=== PATIENT | female | born 1985 | race Caucasian/White ===

== ENCOUNTER → 2024-03-05 14:49 | Outpatient (REF) | payer OTHER, SELFPAY | LOC: PNTC 14:49 | PROVIDERS: ATTENDING PHYSICIAN Obstetrics & Gynecology | DX: O09.529 Supervision of elderly multigravida, unspecified trimester (principal); Z34.93 Encounter for supervision of normal pregnancy, unspecified, third trimester | CPT/HCPCS: 36415; 76816; 86850; 86900; 86901; 96372; J2790 ==

== ENCOUNTER 2024-04-11 11:40 | Observation (INO) | payer OTHER, SELFPAY ==
[2024-04-11 11:56] VITALS: BP 104/48; BMI 28.3
[2024-04-11 12:52] LABS: Hematocrit 35.9 % (37.0-47.0); Hemoglobin 12.7 g/dL (12.0-16.0); Mean Corp Hgb Conc. 35.4 g/dL (33.0-37.0); Mean Corpuscular Hgb 31.9 pg (27.0-31.0); Mean Corpuscular Volume 90.2 fL (81.0-99.0); Mean Platelet Volume 8.7 fL (7.4-10.4); Platelet Count 189 10^3/uL (130-400); Red Blood Cell Count 3.98 10^6/uL (4.20-5.40); Red Cell Dist. Width 12.9 % (11.5-14.5); White Blood Cell Count 10.3 10^3/uL (4.8-10.8)
[2024-04-11 13:08] LABS: Urine Albumin Negative (Neg - Trace); Urine Bilirubin Negative (Negative); Urine Character Clear (Clear); Urine Color Straw; Urine Glucose Negative (Negative); Urine Ketone 1+ (Negative); Urine Leukocyte Trace (Negative); Urine Nitrite Negative (Negative); Urine Occult Blood Negative (Negative); Urine Urobilinogen Negative (Neg - 1+)
[2024-04-11 13:33] LABS: Urine Bacteria Few (Negative)
[2024-04-11 13:34] LABS: Urine Red Blood Cell 0-2 /HPF (0-2)
== END 2024-04-11 14:44 | disposition home or self-care (01) ==
LOC: LDRP 11:40
PROVIDERS: ADMITTING PHYSICIAN Obstetrics & Gynecology; FAMILY PHYSICIAN Family Medicine
DX: R10.10 Upper abdominal pain, unspecified (principal); E86.0 Dehydration; O09.523 Supervision of elderly multigravida, third trimester; Z3A.33 33 weeks gestation of pregnancy
CPT/HCPCS: 81003; 81015; 85027; 86850; 86870; 86900; 86901; G0378

== ENCOUNTER 2024-04-25 14:27 | Observation (INO) | payer OTHER, SELFPAY ==
[2024-04-25 14:42] VITALS: BP 120/60; BMI 29.5
[2024-04-25] MEDS: LR 1000 IV ×2 (16:00→17:02)
[2024-04-25 17:09] LABS: Urine Albumin Negative (Neg - Trace); Urine Bilirubin Negative (Negative); Urine Character Clear (Clear); Urine Color Yellow; Urine Glucose Negative (Negative); Urine Ketone 3+ (Negative); Urine Leukocyte 2+ (Negative); Urine Nitrite Negative (Negative); Urine Occult Blood Negative (Negative); Urine Specific Gravity 1.015 (<1.030); Urine Urobilinogen Negative (Neg - 1+)
[2024-04-25 17:17] LABS: Urine Squamous Cell >30 /LPF (Few)
[2024-04-25 17:18] LABS: Urine Bacteria Many (Negative); Urine White Cell 30-40 /HPF (0-5)
== END 2024-04-25 19:29 | disposition home or self-care (01) ==
LOC: LDRP 14:27
PROVIDERS: ADMITTING PHYSICIAN Obstetrics & Gynecology
DX: O47.03 False labor before 37 completed weeks of gestation, third trimester (principal); Z3A.35 35 weeks gestation of pregnancy; E86.0 Dehydration
CPT/HCPCS: 81003; 81015; 87086; G0378

== ENCOUNTER 2024-05-17 14:12 | Inpatient (IN) | payer OTHER, SELFPAY ==
[2024-05-17 14:18] VITALS: BP 131/53; BMI 29.6
[2024-05-17 15:18] LABS: Hematocrit 34.7 % (37.0-47.0); Hemoglobin 12.4 g/dL (12.0-16.0); Mean Corp Hgb Conc. 35.7 g/dL (33.0-37.0); Mean Corpuscular Hgb 31.4 pg (27.0-31.0); Mean Corpuscular Volume 87.8 fL (81.0-99.0); Mean Platelet Volume 9.1 fL (7.4-10.4); Platelet Count 204 10^3/uL (130-400); Red Blood Cell Count 3.95 10^6/uL (4.20-5.40); White Blood Cell Count 7.8 10^3/uL (4.8-10.8)
[2024-05-17] MEDS: BICITRA 30 ML PO (15:48)
[2024-05-17] MEDS: TYLENOL 1000 MG PO (15:49)
[2024-05-17] MEDS: ANCEF 10 IV (15:49)
[2024-05-17] MEDS: ZITHROMAX INFUSION 250 IV (15:50)
[2024-05-17] MEDS: TORADOL 15 MG IV (18:43)
[2024-05-17] MEDS: MORPHINE SULFATE 4 MG IV (22:15)
[2024-05-18] MEDS: TORADOL 15 MG IV ×3 (00:38→13:06)
[2024-05-18] MEDS: MYLICON 80 MG PO (01:55)
[2024-05-18] MEDS: PERCOCET 5/325 1 TABLET PO (01:56)
[2024-05-18 04:38] LABS: Hematocrit 35.2 % (37.0-47.0); Hemoglobin 12.1 g/dL (12.0-16.0); Mean Corp Hgb Conc. 34.4 g/dL (33.0-37.0); Mean Corpuscular Hgb 30.7 pg (27.0-31.0); Mean Corpuscular Volume 89.3 fL (81.0-99.0); Mean Platelet Volume 8.7 fL (7.4-10.4); Platelet Count 184 10^3/uL (130-400); Red Blood Cell Count 3.94 10^6/uL (4.20-5.40); Red Cell Dist. Width 12.6 % (11.5-14.5); White Blood Cell Count 10.3 10^3/uL (4.8-10.8)
[2024-05-18] MEDS: PRENATAL PLUS 1 TABLET PO (08:51)
[2024-05-18] MEDS: SENOKOT-S 1 TABLET PO (08:51)
--- NOTE | 2024-05-18 13:36 | W.PN.ANS.POP ---
Anesthesia Post Operative
- Anesthesia Post Op Note
Vital Signs Stable-See Nursing Note: Yes
Airway Patent: Yes
Adequate Pain Control: Yes
Change in Mental Status: No
Current Postoperative Nausea & Vomiting: No
Anesthesia Complications: No
General Anesthetic Recall: No
Unplanned Admission: No
Post Op Hydration Adequate: Yes
[2024-05-18] MEDS: TYLENOL 650 MG PO (18:43)
[2024-05-18] MEDS: MOTRIN 600 MG PO (18:44)
[2024-05-19] MEDS: MOTRIN 600 MG PO ×3 (03:53→16:35)
[2024-05-19] MEDS: PERCOCET 5/325 1 TABLET PO (03:53)
[2024-05-19] MEDS: PRENATAL PLUS 1 TABLET PO (08:17)
[2024-05-19] MEDS: SENOKOT-S 1 TABLET PO (08:18)
[2024-05-19] MEDS: TYLENOL 650 MG PO ×2 (10:03→16:32)
[2024-05-20] MEDS: TYLENOL 650 MG PO ×2 (00:29→06:39)
[2024-05-20] MEDS: MOTRIN 600 MG PO ×2 (00:30→06:39)
--- NOTE | 2024-05-20 08:55 | W.DS.TRANS ---
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
-
Discharge Instructions:
Discharge Diagnosis/Procedures Primigravid; history pelvic floor dysfunction,
covid infection, anemia. Primary low transverse
section
Diet Regular
Activity No strenuous activity
Driving Restrictions No driving for 2 weeks
Bathing Restrictions OK to Shower
Instructions:
Stand-Alone Forms: LDRP Delivery
Changes to Home Medications: No
Discharge Medications:
DC Medications w/original date entered in [facility]
prenat.vits,ellyn,nwr-ktyo-kksrp 1 tab PO DAILY Supplement 04/11/24
acetaminophen 325 mg tablet 650 mg (2 x 325 mg) PO Q4HPRN PRN mild pain #0 tabs 05/20/24
ibuprofen 600 mg tablet 600 mg PO Q6HPRN PRN cramps #0 tabs 05/20/24
sennosides 8.6 mg-docusate sodium 50 mg tablet 1 tab PO DAILYPRN PRN constipation #0 tabs 05/20/24
Home Medication Changes
Pending Results: No
Total time spent discharging patient (in min): 25
[2024-05-20] MEDS: PRENATAL PLUS PO (10:47)
[2024-05-21 15:48] LABS: Syphilis/T. pallidum Ab Reflex Negative (Negative)
== END 2024-05-20 10:26 | disposition home or self-care (01) | DRG 786 ==
LOC: LDRP 14:12
PROVIDERS: ADMITTING PHYSICIAN Obstetrics & Gynecology
PROC: 10D00Z1 Extraction of Products of Conception, Low, Open Approach (ICD-10-PCS; 2024-05-17)
DX: O99.892 Other specified diseases and conditions complicating childbirth (principal); U07.1 COVID-19; O98.52 Other viral diseases complicating childbirth; O99.824 Streptococcus B carrier state complicating childbirth; Z3A.38 38 weeks gestation of pregnancy; Z37.0 Single live birth; M99.05 Segmental and somatic dysfunction of pelvic region
CPT/HCPCS: 88307; 85027; 86780; 86850; 86870; 86900; 86901

== ENCOUNTER 2024-08-12 06:44 | Outpatient (RCR) | payer OTHER, SELFPAY | END 2024-08-12 23:59 | disposition home or self-care (01) | LOC: RPT 06:44 | PROVIDERS: ATTENDING PHYSICIAN Obstetrics & Gynecology; FAMILY PHYSICIAN Family Medicine | DX: R10.2 Pelvic and perineal pain (principal); M62.89 Other specified disorders of muscle; Z73.6 Limitation of activities due to disability | CPT/HCPCS: 97163; 97530 ==

== ENCOUNTER 2024-09-09 15:10 | Outpatient (RCR) | payer OTHER, SELFPAY | END 2024-09-09 23:59 | disposition home or self-care (01) | LOC: RPT 15:10 | PROVIDERS: ATTENDING PHYSICIAN Obstetrics & Gynecology; FAMILY PHYSICIAN Family Medicine | DX: R10.2 Pelvic and perineal pain (principal); M62.89 Other specified disorders of muscle; Z73.6 Limitation of activities due to disability | CPT/HCPCS: 97112; 97140; 97530 ==

== ENCOUNTER 2024-10-08 09:40 | Outpatient (RCR) | payer OTHER, SELFPAY | END 2024-10-08 23:59 | disposition home or self-care (01) | LOC: RPT 09:40 | PROVIDERS: ATTENDING PHYSICIAN Obstetrics & Gynecology; FAMILY PHYSICIAN Family Medicine | DX: R10.2 Pelvic and perineal pain (principal); M62.89 Other specified disorders of muscle; Z73.6 Limitation of activities due to disability | CPT/HCPCS: 97112; 97140 ==